=== PATIENT | male | born 1990 | race Caucasian/White ===

== ENCOUNTER 2017-02-25 00:45 | Emergency (ER) | payer SELFPAY ==
--- NOTE | 2017-02-25 03:38 | RADIOLOGY REPORT (SQ) ---
EXAM DESCRIPTION: FEMUR LEFT COMPLETED DATE/TIME: 02/25/2017 3:04 am REASON FOR STUDY: pain lateral left femur at the midshaft. COMPARISON: None. NUMBER OF VIEWS: Two views. TECHNIQUE: Two radiographic images acquired of the left femur to include hip and knee in at least on e projection. LIMITATIONS: None. FINDINGS: MINERALIZATION: Normal. BONES: No acute fracture. No worrisome bone lesions. SOFT TISSUES: No obvious swelling. Radiopaque foreign bodies are probably representing overlying adan thing. IMPRESSION: No radiographic evidence of acute injury. TECHNICAL DOCUMENTATION: JOB ID: [id number] 2010 [employer]- All Rights Reserved
--- NOTE | 2017-02-25 03:43 | RADIOLOGY REPORT (SQ) ---
EXAM DESCRIPTION: CHEST PA/LAT COMPLETED DATE/TIME: 02/25/2017 3:04 am REASON FOR STUDY: pain COMPARISON: None. EXAM PARAMETERS: NUMBER OF VIEWS: two views TECHNIQUE: Digital Frontal and Lateral radiographic views of the chest acquired. RADIATION DOSE: NA LIMITATIONS: none FINDINGS: LUNGS AND PLEURA: No consolidation, pneumothorax or pleural effusion. MEDIASTINUM AND HILAR STRUCTURES: No masses or contour abnormalities. HEART AND VASCULAR STRUCTURES: Heart normal size. No evidence for failure. BONES: No acute findings. HARDWARE: None in the chest. IMPRESSION: No acute radiographic finding in the chest. TECHNICAL DOCUMENTATION: JOB ID: [id number] 2010 [employer]- All Rights Reserved
[2017-02-25] MEDS ORDERED: IBUPROFEN 600 MG TABLET PO ONE (03:44)
--- NOTE | 2017-02-25 04:11 | ER Document Report ---
ED General - General Chief Complaint: Shortness Of Breath Stated Complaint: SHORTNESS OF BREATH/CHEST PAIN Time Seen by Provider: 02/25/17 01:40 Mode of Arrival: Ambulatory Information source: Patient, Parent TRAVEL OUTSIDE OF THE [place] IN LAST 30 DAYS: No - HPI Patient complains to provider of: Chest pain, left leg pain Onset: Other - 2-3 months Onset/Duration: Intermittent Quality of pain: Achy Severity: Moderate Associated symptoms: None Exacerbated by: Denies Relieved by: Denies Notes: Patient is a 26-year-old male with a reported history of anxiety which she has not been medicated for an at least 2-3 years, presenting to the emergency room today complaining of intermittent left-sided chest pain and intermittent left leg pain, he reports that he feels the chest pain generally at night, he has a nonproductive cough, his pain is worsened when laying on the left side, he denies any injury or trauma, he also reports some pain in the posterior thigh of the left lower extremity which sometimes radiates around to the front of the thigh, he denies any injury or trauma to this area recently, he does state he fell off of his skateboard a few months ago, did does not report any specific injury from this though, patient also states that he usually sits in a chair throughout most of the day and the chair comes in contact with the posterior portion of his thigh worries having the pain - Related Data Allergies/Adverse Reactions: No Known Allergies Allergy (Verified 02/25/17 00:53) Past Medical History - General Information source: Patient, Parent - Social History Smoking Status: Current Every Day Smoker Drug Abuse: Marijuana Family History: CAD, Reviewed & Not Pertinent Pulmonary Medical History: Reports: Hx Asthma - Pediatric Renal/ Medical History: Denies: Hx Peritoneal Dialysis Psychiatric Medical History: Reports: Hx Anxiety, Hx Depression Past Surgical History: Reports: Hx Orthopedic Surgery - Immunizations Hx Diphtheria, Pertussis, Tetanus Vaccination: No Review of Systems - Review of Systems Constitutional: No symptoms reported EENT: No symptoms reported Cardiovascular: Chest pain Respiratory: No symptoms reported Gastrointestinal: No symptoms reported Genitourinary: No symptoms reported Male Genitourinary: No symptoms reported Musculoskeletal: See HPI Skin: No symptoms reported Hematologic/Lymphatic: No symptoms reported Neurological/Psychological: No symptoms reported -: Yes All other systems reviewed and negative Physical Exam - Vital signs Vitals: Temp Pulse Resp BP Pulse Ox 97.6 F 69 18 134/92 H 97 02/25/17 00:52 02/25/17 00:52 02/25/17 00:52 02/25/17 00:52 02/25/17 00:52 Interpretation: Normal - General General appearance: Appears well, Alert - HEENT Head: Normocephalic, Atraumatic Eyes: Normal Pupils: PERRL - Respiratory Respiratory status: No respiratory distress Chest status: Nontender Breath sounds: Normal Chest palpation: Normal - Cardiovascular Rhythm: Regular Heart sounds: Normal auscultation Murmur: No - Abdominal Inspection: Normal Distension: No distension Bowel sounds: Normal Tenderness: Nontender Organomegaly: No organomegaly - Back Back: Normal, Nontender - Extremities General upper extremity: Normal inspection, Nontender, Normal color, Normal ROM , Normal temperature General lower extremity: Normal inspection, Nontender, Normal color, Normal ROM , Normal temperature, Normal weight bearing. No: Tony's sign - Neurological Neuro grossly intact: Yes Cognition: Normal Orientation: AAOx4 [place] Coma Scale Eye Opening: Spontaneous [place] Coma Scale Verbal: Oriented [place] Coma Scale Motor: Obeys Commands [place] Coma Scale Total: 15 Speech: Normal Motor strength normal: LUE, RUE, LLE, RLE Sensory: Normal - Psychological Associated symptoms: Flat affect, Other - Soft-spoken, poor eye contact - Skin Skin Temperature: Warm Skin Moisture: Dry Skin Color: Normal Course - Re-evaluation Re-evalutation: 02/25/17 04:26 Patient reports that he has been having these symptoms for the past 2-3 months, has not seen a primary care provider, and they have worsened over the past week although he is not having any pain at time of my evaluation, he has not taken anything at home for his pain, has a history of anxiety which was diagnosed a few years ago but he is not currently medicated and does not follow up with a primary care provider or a mental health professional, imaging findings and EKG are unremarkable, symptoms likely related to anxiety and/or musculoskeletal in nature, patient was discharged with a prescription for Motrin and information for follow-up with mental health, patient and mother acknowledge understanding and agreement with this plan - Vital Signs Vital signs: Temp Pulse Resp BP Pulse Ox 97.6 F 69 18 134/92 H 97 02/25/17 00:52 02/25/17 00:52 02/25/17 00:52 02/25/17 00:52 02/25/17 00:52 - Diagnostic Test Radiology reviewed: Image reviewed, Reports reviewed - EKG Interpretation by Me EKG shows normal: Sinus rhythm Rate: Bradycardia Discharge - Discharge Clinical Impression: Chest pain Qualifiers: Chest pain type: unspecified Qualified Code(s): R07.9 - Chest pain, unspecified Thigh pain Qualifiers: Laterality: left Qualified Code(s): M79.652 - Pain in left thigh Condition: Stable Disposition: HOME, SELF-CARE Instructions: Anxiety ([facility]), Chest Pain of Unclear Cause ([facility]), Leg Pain Nonspecific ([facility]) Additional Instructions: Follow up with your primary care provider and a mental health professional in one to 2 days. Return to the emergency room immediately if symptoms worsen or any additional concerns. Prescriptions: Ibuprofen [Motrin 600 Mg Tablet] 600 mg PO TID #30 tablet
[2017-02-25 04:34] VITALS: BP 138/62
--- NOTE | 2017-02-25 10:49 | EKG REPORT ---
SEVERITY:- NORMAL ECG - SINUS RHYTHM ST ELEV, PROBABLE NORMAL EARLY REPOL PATTERN : Confirmed by: Adri Sullivan 25-Feb-2017 10:49:35
== END 2017-02-25 04:33 | disposition home or self-care (01) ==
LOC: ER 00:45
DX: R07.9 Chest pain, unspecified (principal); M79.652 Pain in left thigh; R06.02 Shortness of breath; M79.605 Pain in left leg; F41.9 Anxiety disorder, unspecified; F17.200 Nicotine dependence, unspecified, uncomplicated
CPT/HCPCS: 71020; 93005; 93010; 99285

== ENCOUNTER 2017-03-02 03:34 | Emergency (ER) | payer SELFPAY ==
--- NOTE | 2017-03-02 04:19 | ER Document Report ---
ED General - General Stated Complaint: LOCK JAW RECURRENT TOOTHACHES Time Seen by Provider: 03/02/17 04:05 TRAVEL OUTSIDE OF THE [place] IN LAST 30 DAYS: No - HPI Patient complains to provider of: Dental pain jaw pain Notes: Patient coming in for evaluation of dental pain and jaw pain. Patient sitting in the room comfortably able to perform full sentences and of his mouth without difficulty. Patient states child pain similar to when he was on Haldol in the past. Patient also states diffuse dental pain states just posterior CT day prior to arrival first time he is brush his teeth "a long time. Patient denies any fevers chills. Denies smoking denies any other medical issues. Patient denies taking any psychiatric medications at this time. Patient denies taking any medications at this time including street drugs. - Related Data Allergies/Adverse Reactions: No Known Allergies Allergy (Verified 02/25/17 00:53) Past Medical History - Social History Smoking Status: Unknown if Ever Smoked Family History: CAD, Reviewed & Not Pertinent Pulmonary Medical History: Reports: Hx Asthma - Pediatric Renal/ Medical History: Denies: Hx Peritoneal Dialysis Psychiatric Medical History: Reports: Hx Anxiety, Hx Depression Past Surgical History: Reports: Hx Orthopedic Surgery - Immunizations Hx Diphtheria, Pertussis, Tetanus Vaccination: No Review of Systems - Review of Systems Constitutional: No symptoms reported EENT: Other - Dental pain jaw pain Cardiovascular: No symptoms reported Respiratory: No symptoms reported Gastrointestinal: No symptoms reported Genitourinary: No symptoms reported Male Genitourinary: No symptoms reported Musculoskeletal: No symptoms reported Skin: No symptoms reported Hematologic/Lymphatic: No symptoms reported Neurological/Psychological: No symptoms reported Physical Exam - Vital signs Interpretation: Normal - General General appearance: Appears well, Alert - HEENT Head: Normocephalic, Atraumatic Eyes: Normal Cornea: Normal Eyelashes: Normal Pupils: PERRL Anterior chamber: Normal Fundascopic: Normal Ears: Normal External canal: Normal Tympanic membrane: Normal Sinus: Normal Mouth/Lips: Normal Pharynx: Normal Neck: Normal - Respiratory Respiratory status: No respiratory distress Chest status: Nontender Breath sounds: Normal Chest palpation: Normal - Cardiovascular Rhythm: Regular Heart sounds: Normal auscultation Murmur: No - Abdominal Inspection: Normal Distension: No distension Bowel sounds: Normal Tenderness: Nontender Organomegaly: No organomegaly - Back Back: Normal, Nontender - Extremities General upper extremity: Normal inspection, Nontender, Normal color, Normal ROM , Normal temperature General lower extremity: Normal inspection, Nontender, Normal color, Normal ROM , Normal temperature, Normal weight bearing. No: Tony's sign - Neurological Neuro grossly intact: Yes Cognition: Normal Orientation: AAOx4 [place] Coma Scale Eye Opening: Spontaneous [place] Coma Scale Verbal: Oriented [place] Coma Scale Motor: Obeys Commands [place] Coma Scale Total: 15 Speech: Normal Motor strength normal: LUE, RUE, LLE, RLE Sensory: Normal - Psychological Associated symptoms: Normal affect, Normal mood - Skin Skin Temperature: Warm Skin Moisture: Dry Skin Color: Normal Course - Re-evaluation Re-evalutation: 03/02/17 04:27 Evaluation shows diffuse dental disease no signs of dental abscess or gingival cellulitis. Patient will be treated with Naprosyn encouraged follow-up with dental clinic. No signs of jaw dislocation no signs of any extrapyramidal symptoms from psychiatric medications. Discharge - Discharge Clinical Impression: Jaw pain, Pain, dental Condition: Good Disposition: HOME, SELF-CARE Instructions: [facility], Dentist, Family Physicians / Practices, Toothache ([facility]) Additional Instructions: Please follow-up with a dentist provided.Please follow-up with a dentist provided. At this time your examination does not reveal any signs of dental abscess are gingival cellulitis however he did have diffuse disease consistent with dental caries and tartar buildup. This will need to be taken care of by a dentist. Medication and give you for your dental pain will also help with your jaw pain. Follow-up with your primary care physician or physicians provided. Prescriptions: Naproxen [Naprosyn 250 mg Tablet] 250 mg PO DAILY PRN #30 tablet PRN Reason:
[2017-03-02 05:06] VITALS: BP 144/100
== END 2017-03-02 05:06 | disposition home or self-care (01) ==
LOC: ER 03:34
DX: K08.89 Other specified disorders of teeth and supporting structures (principal); R68.84 Jaw pain
CPT/HCPCS: 99282

== ENCOUNTER 2018-06-11 16:04 | Emergency (ER) | payer SELFPAY ==
--- NOTE | 2018-06-11 17:17 | ER Document Report ---
ED Medical Screen (RME) - General Chief Complaint: Palpitations Stated Complaint: HEART ISSUES Time Seen by Provider: 06/11/18 17:07 Notes: Patient says his heart is skipping beats this afternoon, beating every couple of minutes. Denies any chest pain. Has had a headache for the past 4 days and is been taking Aleve, one a day for those 4 days without any relief. Has a history of anxiety for which he takes Benadryl. Has an EKG in his file from February,, which is essentially normal and he says he thinks he was here then for anxiety. Patient denies any difficulty breathing or shortness of breath. Denies diabetes or heart disease. Smokes cigarettes. Also smokes marijuana. EKG is completely normal. TRAVEL OUTSIDE OF THE [place] IN LAST 30 DAYS: No - Related Data Allergies/Adverse Reactions: No Known Allergies Allergy (Verified 02/25/17 00:53) Past Medical History Pulmonary Medical History: Reports: Hx Asthma - Pediatric Renal/ Medical History: Denies: Hx Peritoneal Dialysis Psychiatric Medical History: Reports: Hx Anxiety, Hx Depression Past Surgical History: Reports: Hx Orthopedic Surgery - Immunizations Hx Diphtheria, Pertussis, Tetanus Vaccination: No Physical Exam - Vital signs Vitals: Temp Pulse Resp BP Pulse Ox 98.9 F 98 17 142/96 H 96 06/11/18 16:10 06/11/18 16:10 06/11/18 16:10 06/11/18 16:10 06/11/18 16:10 Course - Vital Signs Vital signs: Temp Pulse Resp BP Pulse Ox 98.9 F 98 17 142/96 H 96 06/11/18 16:10 06/11/18 16:10 06/11/18 16:10 06/11/18 16:10 06/11/18 16:10
[2018-06-11 17:50] LABS: ABSOLUTE EOSINOPHILS # (AUTO) 0.3 10^3/uL (0.0-0.6); ABSOLUTE LYMPHOCYTES (AUTO) 2.9 10^3/uL (0.5-4.7); ABSOLUTE MONOCYTES (AUTO) 0.7 10^3/uL (0.1-1.4); BASOPHILS % (AUTO) 0.2 % (0-2); EOSINOPHILS % (AUTO) 2.6 % (0-6); HEMATOCRIT 48.6 % (37.9-51.0); HEMOGLOBIN 17.1 g/dL (13.5-17.0); LYMPHOCYTES % (AUTO) 24.4 % (13-45); MEAN CORPUSCULAR HEMOGLOBIN 31.9 pg (27.0-33.4); MEAN CORPUSCULAR HGB CONC 35.3 g/dL (32.0-36.0); MEAN CORPUSCULAR VOLUME 90 fl (80-97); PLATELET COUNT 261 10^3/uL (150-450); RED BLOOD COUNT 5.37 10^6/uL (4.35-5.55); SEGMENTED NEUTROPHILS % (AUTO) 66.8 % (42-78); TOTAL CELLS COUNTED % (AUTO) 100 %; WHITE BLOOD COUNT 11.9 10^3/uL (4.0-10.5)
[2018-06-11 18:10] LABS: ALANINE AMINOTRANSFERASE 66 U/L (21-72); ALBUMIN 4.5 g/dL (3.5-5.0); ALKALINE PHOSPHATASE 112 U/L (38-126); ANION GAP 10 (5-19); ASPARTATE AMINO TRANSFERASE 34 U/L (17-59); BILIRUBIN,DIRECT 0.3 mg/dL (0.0-0.4); BILIRUBIN,TOTAL 0.5 mg/dL (0.2-1.3); BLOOD UREA NITROGEN 15 mg/dL (7-20); CALCIUM 10.2 mg/dL (8.4-10.2); CARBON DIOXIDE 26 mmol/L (22-30); CHLORIDE 104 mmol/L (98-107); GLUCOSE 97 mg/dL (75-110); POTASSIUM 4.2 mmol/L (3.6-5.0); SODIUM 139.5 mmol/L (137-145); TOTAL PROTEIN 7.3 g/dL (6.3-8.2)
[2018-06-11 18:21] LABS: CREATINE KINASE MB 0.33 ng/mL (<4.55)
[2018-06-11 18:24] LABS: TROPONIN I < 0.012 ng/mL
--- NOTE | 2018-06-11 19:49 | EKG REPORT ---
SEVERITY:- NORMAL ECG - SINUS RHYTHM : Confirmed by: Margarita Martinez MD 11-Jun-2018 19:49:02
--- NOTE | 2018-06-11 21:54 | ER Document Report ---
ED General - General Chief Complaint: Palpitations Stated Complaint: HEART ISSUES Time Seen by Provider: 06/11/18 17:07 Mode of Arrival: Medic Information source: Patient Notes: This is a 27-year-old man brought in by EMS with heart palpitations and skipping a beat. Patient states he had a recent episode of bronchitis. He denies any fever, chills, nausea or vomiting. Patient states he tries to avoid caffeine. He denies alcohol. TRAVEL OUTSIDE OF THE [place] IN LAST 30 DAYS: No - HPI Onset: This afternoon Onset/Duration: Gradual Quality of pain: No pain Severity: Moderate Pain Level: 2 Associated symptoms: denies: Chest pain, Fever, Nausea, Vomiting, Shortness of breath Exacerbated by: Denies Relieved by: Denies Similar symptoms previously: No Recently seen / treated by doctor: No - Related Data Allergies/Adverse Reactions: No Known Allergies Allergy (Verified 02/25/17 00:53) Past Medical History - General Information source: Patient - Social History Smoking Status: Unknown if Ever Smoked Cigarette use (# per day): Yes - 1 pack/day Chew tobacco use (# tins/day): No Frequency of alcohol use: None Drug Abuse: None Lives with: Family Family History: CAD, Reviewed & Not Pertinent Patient has suicidal ideation: No Patient has homicidal ideation: No Pulmonary Medical History: Reports: Hx Asthma - Pediatric Renal/ Medical History: Denies: Hx Peritoneal Dialysis Psychiatric Medical History: Reports: Hx Anxiety, Hx Depression Past Surgical History: Reports: Hx Orthopedic Surgery - Immunizations Hx Diphtheria, Pertussis, Tetanus Vaccination: No Review of Systems - Review of Systems Constitutional: denies: Chills, Fever EENT: No symptoms reported Cardiovascular: Palpitations. denies: Chest pain, Heart racing, Orthopnea, Dyspnea, Syncope Respiratory: No symptoms reported Gastrointestinal: No symptoms reported Genitourinary: No symptoms reported Male Genitourinary: No symptoms reported Musculoskeletal: No symptoms reported Skin: No symptoms reported Hematologic/Lymphatic: No symptoms reported Neurological/Psychological: No symptoms reported Physical Exam - Vital signs Vitals: Temp Pulse Resp BP Pulse Ox 98.9 F 98 17 142/96 H 96 06/11/18 16:10 06/11/18 16:10 06/11/18 16:10 06/11/18 16:10 06/11/18 16:10 Notes: Physical exam: GENERAL: Patient is alert and oriented x3, no acute distress HEAD: Atraumatic, normocephalic. EYES: Pupils equal round and reactive to light, extraocular movements intact, sclera anicteric, conjunctiva are normal. ENT: TMs normal, nares patent, oropharynx clear without exudates. Moist mucous membranes. NECK: Normal range of motion, supple without obvious mass or JVD. LUNGS: Breath sounds clear to auscultation bilaterally and equal. No wheezes rales or rhonchi. HEART: Regular rate and rhythm without murmurs, rubs or gallops. ABDOMEN: Soft, normoactive bowel sounds. No tenderness to palpation. No guarding, no rebound. No masses appreciated. EXTREMITIES: Normal range of motion, no pitting or edema. No clubbing or cyanosis. NEUROLOGICAL: Cranial nerves II through XII grossly intact. Normal speech, mo ving all extremities. PSYCH: Normal mood, normal affect. SKIN: Warm, Dry, normal turgor, no rashes or lesions noted. Course - Vital Signs Vital signs: Temp Pulse Resp BP Pulse Ox 98.9 F 98 17 142/96 H 96 06/11/18 16:10 06/11/18 16:10 06/11/18 16:10 06/11/18 16:10 06/11/18 16:10 - Laboratory Result Diagrams: 06/11/18 17:40 06/11/18 17:40 Laboratory results interpreted by me: 06/11/18 17:40 WBC 11.9 H Hgb 17.1 H - EKG Interpretation by Nm Rate: Normal Rhythm: NSR - EKG shows normal sinus rhythm with a ventricular rate of 85, no acute ST-T wave changes Discharge - Discharge Clinical Impression: Palpitations Condition: Stable Disposition: HOME, SELF-CARE Instructions: Palpitations (Irregular or Rapid Heartrate) ([facility]) Additional Instructions: As we discussed, your EKG looked good. Your labs look good as well. Drink plenty of fluids and get good rest. Continue to try to avoid caffeine intake. Keep in mind that Smoking can sometimes irritate the esophagus and precipitate palpitations. If you can cut down on the smoking, ultimately would be very good for her health. Would like you to follow-up with a primary care doctor: I left the number of one on the chart. Otherwise, return to the emergency room for any worsening palpitations or any chest pain or shortness of breath. Referrals: SONG BRADY, [NO LOCAL MD] - Follow up as needed (Call for the next available appointment.)
[2018-06-11 22:47] VITALS: BP 137/88
== END 2018-06-11 22:47 | disposition home or self-care (01) ==
LOC: ER 16:04
DX: R00.2 Palpitations (principal); Z72.0 Tobacco use
CPT/HCPCS: 36415; 80053; 82553; 84484; 85025; 93005; 93010; 99285